=== PATIENT | female | born 1950 | race Caucasian/White ===

== ENCOUNTER → 2017-04-10 12:44 | Outpatient (CLI) | payer MEDICARE, OTHER ==
[2016-06-13 13:05] VITALS: BMI 28.1
[~2017-04-10 12:44] MED LIST: BAYER CHEWABLE81 MG PO; BENADRYL25 MG PO; BISOPROLOL-HCT1 EAC1 PO; CELEXA20 MG PO; CLARITIN 10 MG10 MG PO; IRON/FERROUS SULFATE; LEVOXYL25 MCG PO; MIRAPEX1 MG PO; NEURONTIN600 MG PO; NEXIUM20 MG PO; PLAQUENIL200 MG PO; PLAVIX75 MG PO; SINEMET 25-1001 EACH PO; STOOL SOFTENER240 MG PO; TRAZODONE HCL50 MG PO; ULTRAM50 MG PO; VITAMIN D31000 UNIT PO; VIVELLE-DO.0375 MG/2 TD; ZANAFLEX2 M1 PO
== END | disposition home or self-care (01) ==
LOC: D.CT 12:44
DX: R10.11 Right upper quadrant pain (principal); R11.0 Nausea

== ENCOUNTER 2017-04-11 19:56 | Inpatient (IN) | payer MEDICARE, OTHER ==
[~2017-04-11] VITALS: Ht 165.1 cm; Wt 68.3 kg
--- NOTE | 2017-04-11 20:00 | NUR ---
RECEIVED TO ROOM 2133 VIA WHEELCHAIR FROM HOME A DIRECT ADMIT. ACCOMPANIED BY HOSPITAL STAFF AND . DX: ABDOMEN PAIN AND FEVER. WILL CONTNUE PLAN OF CARE.
[2017-04-11 21:33] LABS: BASOPHILS 0.4 % (0-2); EOSINOPHILS 0.7 % (0-7); HEMATOCRIT 43.6 % (36.0-48.0); HEMOGLOBIN 14.7 g/dL (12-16); IMMATURE GRANULOCYTES 0.2 % (0-5); LYMPHOCYTES 27.2 % (15-50); MCH 30.8 pg (26.0-34.0); MCHC 33.7 g/dL (31.0-37.0); MCV 91.4 fL (80.0-100.0); MEAN PLATELET VOLUME 9.2 fL (7.4-10.4); MONOCYTES 8.2 % (2-11); NEUTROPHILS 63.3 % (40-80); PLATELET COUNT 157 10x3/uL (130-400); RBC 4.77 10x6/uL (4.00-5.40); RDW 14.2 % (11.5-14.5); WBC 5.5 10x3/uL (4.8-10.8)
[2017-04-11 21:47] LABS: ALBUMIN 3.8 g/dL (3.4-5.0); ALKALINE PHOSPHATASE 69 U/L (46-116); ALT (SGPT) 22 U/L (10-68); AMYLASE - SERUM 39 U/L (25-115); BILIRUBIN - TOTAL 0.46 mg/dL (0.2-1.3); CALC OSMOLALITY 286 mosm/kg (275-300); CARBON DIOXIDE 24.5 mmol/L (21.0-32.0); CHLORIDE - SERUM 106 mmol/L (98-107); CREATININE - SERUM 0.6 mg/dL (0.6-1.3); GLUCOSE 94 mg/dL (74-106); LIPASE 164 U/L (73-393); PROTEIN - SERUM 7.1 g/dL (6.4-8.2); SODIUM 143 mmol/L (136-145); UREA NITROGEN 19 mg/dL (7-18); eGFR NON AFRICAN AMERICAN > 90 mL/min (90-120)
[2017-04-11 23:00] LABS: ERYTHROCYTE SEDIMENTATION RATE 15 mm/hr (0-30)
[2017-04-12] VITALS (7 sets, daily range): BP systolic 99–164; BP diastolic 20–72; Ht 165.1 cm; Wt 68.3 kg
--- NOTE | 2017-04-12 02:45 | NUR ---
IV STARTED IN RIGHT HAND X 3 ATTEMPTS PER JULIUS HOGAN RN WITH #22G ANGIOCATH.
[2017-04-12 06:37] LABS: APPEARANCE SLT CLOUDY (CLEAR); BILIRUBIN NEGATIVE (NEGATIVE); COLOR DK YELLOW (YELLOW); GLUCOSE NEGATIVE (NEGATIVE); KETONE LARGE mg/dL (NEGATIVE); LEUKOCYTE ESTERASE NEGATIVE (NEGATIVE); NITRITE NEGATIVE (NEGATIVE); PROTEIN NEGATIVE (NEGATIVE); SPECIFIC GRAVITY 1.025 (1.005-1.020); UROBILINOGEN NORMAL (NORMAL)
--- NOTE | 2017-04-12 11:32 | NUR ---
THIS AM, PT WAS SCHEDULED FOR US. OCONNOR WAS INSERTED. UA OBTAINED. ALSO STOOL SAMPLE OBTAINED.OCONNOR THEN CLAMPED FOR BLADDER TO FILL. AFTER ONE HOUR, BLADDER FULL, OCONNOR REMOVED. PATIENT THEN TAKEN TO US.
--- NOTE | 2017-04-12 17:17 | NUR ---
Patient not NPO. Asia JASMINE, SAID SHE WOULD MAKE PATIENT NPO AFTER MIDNIGHT AND CAN DO MRCP IN THE A.M. LEFT MESSAGE WITH DR DOYLE ANSWERING SERVICE.
--- NOTE | 2017-04-12 18:18 | NUR ---
HAS BEEN RESTING IN BED. WEIGHED AGAIN PER PTS REQUEST. PATIENT WEIGHED 145.2 ON MED2 SCALE #2.
--- NOTE | 2017-04-12 19:20 | NUR ---
RECEIVED REPORT, PT VISITING WITH , DENIES ANY NEEDS, BED IS LOW, SRX2,CALL LIGHT IN REACH, WILL CONTINUE PLAN OF CARE
--- NOTE | 2017-04-12 23:40 | NUR ---
CRANE RIGGER AT BEDSIDE TO OBTAIN VITALS, CALL LIGHT IN REACH. WILL CONTINUE WITH PLAN OF CARE.
[2017-04-13] VITALS: BP 90/44
--- NOTE | 2017-04-13 02:21 | NUR ---
ASSESSMENT COMPLETE, SEE FLOWSHEET, PT AWAKE, DENIES ANY NEEDS, BEEN NPO SINCE MIDNIGHT, BED IS LOW, SRX2, CALL LIGHT IN REACH, WILL CONTINUE PLAN OF CARE
[2017-04-13 04:00] VITALS: BP 107/53
[2017-04-13 05:31] LABS: BASOPHILS 0.4 % (0-2); EOSINOPHILS 2.5 % (0-7); HEMATOCRIT 36.1 % (36.0-48.0); HEMOGLOBIN 12.1 g/dL (12-16); IMMATURE GRANULOCYTES 0.2 % (0-5); LYMPHOCYTES 40.8 % (15-50); MCH 30.3 pg (26.0-34.0); MCHC 33.5 g/dL (31.0-37.0); MCV 90.3 fL (80.0-100.0); MEAN PLATELET VOLUME 9.5 fL (7.4-10.4); MONOCYTES 6.8 % (2-11); NEUTROPHILS 49.3 % (40-80); PLATELET COUNT 147 10x3/uL (130-400); RDW 14.3 % (11.5-14.5); WBC 5.2 10x3/uL (4.8-10.8)
[2017-04-13 06:00] LABS: CALC OSMOLALITY 285 mosm/kg (275-300); CARBON DIOXIDE 26.3 mmol/L (21.0-32.0); CHLORIDE - SERUM 110 mmol/L (98-107); CREATININE - SERUM 0.7 mg/dL (0.6-1.3); GLUCOSE 112 mg/dL (74-106); POTASSIUM - SERUM 3.1 mmol/L (3.5-5.1); SODIUM 143 mmol/L (136-145); T4 THYROXIN - FREE 1.32 ng/dL (0.76-1.46); THYROID STIMULATING HORMONE 1.01 uIU/mL (0.36-3.74); UREA NITROGEN 13 mg/dL (7-18); eGFR NON AFRICAN AMERICAN 88 mL/min (90-120)
--- NOTE | 2017-04-13 07:38 | NUR ---
AM ROUNDING- RECEIVED REPORT FROM CUSTOMER RELATIONSHIP SPECIALIST NURSE INDERJIT. PT IS CURRENTLY LAYING IN BED ON RIGHT SIDE WITH EYES CLOSED RESTING. NPO CURRENTLY FOR PROCEDURE THIS AM. CONSENTS ARE SIGNED AND IN CHART. ON ROOM AIR. NO MONITOR. IV SEEN TO RIGHT HAND THAT IS CURRENTLY SALINE LOCKED. NO NEED AT CURRENT TIME. WILL CONTINUE TO MONITOR AND CONTINUE WITH PLAN OF CARE.
[2017-04-13 08:44] VITALS: BP 138/70
--- NOTE | 2017-04-13 09:01 | NUR ---
PT TO MRI VIA WHEELCHAIR.
--- NOTE | 2017-04-13 09:01 | NUR ---
0881- JONY FROM IR CALLED TO STATE TO GIVE PT PROTONIX AROUND 1000 AND TO MAKE SURE PT HAS BEEN NPO. I INFORMED MADHURI BORGES THAT PT HAS BEEN NPO SINCE MIDNIGHT ORDERED. WILL CONTINUE TO MONITOR.
--- NOTE | 2017-04-13 09:54 | NUR ---
PT BACK FROM MRI VIA WHEELCHAIR.
--- NOTE | 2017-04-13 10:32 | NUR ---
PT GIVEN PRE-OP PEPCID ORDERED BY JONY VICENTE RN IN IR. EKG DONE PER ORDER AND PLACED IN CHART.
--- NOTE | 2017-04-13 12:04 | NUR ---
PT BACK FROM PROCEDURE VIA BED.
--- NOTE | 2017-04-13 12:51 | NUR ---
PT TO XRAY VIA WHEELCHAIR.
--- NOTE | 2017-04-13 13:06 | NUR ---
PT BACK FROM AY VIA WHEELCHAIR.
--- NOTE | 2017-04-13 17:49 | NUR ---
PT IS CURRENTLY SITTING UP IN BED WITH EYES OPEN RESTING. IS AT BEDSIDE. NO NEED AT CURRENT TIME. WILL CONTINUE TO MONITOR.
[2017-04-13 18:24] VITALS: BP 170/64
[2017-04-13 19:00] VITALS: BP 154/74
--- NOTE | 2017-04-13 19:25 | NUR ---
RECEIVED REPORT, WILL ASSUME CARE OF PT, AT BEDSIDE, BED IS LOW, SRX2, CALL LIGHT IN REACH, WILL CONTINUE PLAN OF CARE
[2017-04-14 04:00] VITALS: BP 142/76
--- NOTE | 2017-04-14 07:00 | NUR ---
RECEIVED REPORT. ASSUMED CARE OF PATIENT. CALL LIGHT WITHIN REACH. PATIENT RESTING ON LEFT LATERAL SIDE. ALERT/ORIENTED. DENIES NEEDS AT THIS TIME. NO DISTRESS.
[2017-04-14 08:00] VITALS: BP 139/61
--- NOTE | 2017-04-14 10:39 | NUR ---
22 GAUGE IV PLACED TO LEFT HAND X 1 STICK. GOOD BLOOD RETURN, EASY FLUSH. TAPED, DATED AND SECURED. TOLERATED IV PLACEMENT WELL. NO DISTRESS. IV FLUIDS INFUSING TOLERATED.
[2017-04-14 12:00] VITALS: BP 148/78
--- NOTE | 2017-04-14 15:00 | NUR ---
RESTING IN BED. FAMILY AT BEDSIDE. CALL LIGHT WITHIN REACH. NO DISTRESS. DENIES NEEDS.
[2017-04-14 16:00] VITALS: BP 123/64
--- NOTE | 2017-04-14 18:18 | NUR ---
TOLERATING IV FLAGYL WELL. FAMILY AT BEDSIDE. DENIES NEEDS. CALL LIGHT WITHIN REACH. NO DISTRESS.
[2017-04-14 20:00] VITALS: BP 119/61
--- NOTE | 2017-04-14 20:06 | NUR ---
RECEIVED REPORT, WILL ASSUME CARE OF PT, PT IS ALERT & ORIENTATED, BED IS LOW, SRX2, CALL LIGHT IN REACH, PT AT BEDSIDE, WILL CONTINUE PLAN OF CARE
--- NOTE | 2017-04-15 00:17 | NUR ---
ASSESSMENT COMPLETE, SEE FLOWSHEET,PT SLEEPING, BED IS LOW, SRX2, CALL LIGHT IN REACH, WILL CONTINUE PLAN OF CARE
[2017-04-15 04:00] VITALS: BP 131/69
[2017-04-15 05:54] LABS: BASOPHILS 0.2 % (0-2); EOSINOPHILS 3.1 % (0-7); HEMATOCRIT 37.6 % (36.0-48.0); HEMOGLOBIN 12.6 g/dL (12-16); IMMATURE GRANULOCYTES 0.2 % (0-5); LYMPHOCYTES 33.2 % (15-50); MCH 29.9 pg (26.0-34.0); MCHC 33.5 g/dL (31.0-37.0); MCV 89.3 fL (80.0-100.0); MEAN PLATELET VOLUME 9.4 fL (7.4-10.4); MONOCYTES 6.6 % (2-11); NEUTROPHILS 56.7 % (40-80); PLATELET COUNT 153 10x3/uL (130-400); RBC 4.21 10x6/uL (4.00-5.40); RDW 13.8 % (11.5-14.5); WBC 6.2 10x3/uL (4.8-10.8)
[2017-04-15 06:24] LABS: ALBUMIN 3.1 g/dL (3.4-5.0); ALKALINE PHOSPHATASE 58 U/L (46-116); ALT (SGPT) 26 U/L (10-68); BILIRUBIN - TOTAL 0.58 mg/dL (0.2-1.3); CALC OSMOLALITY 281 mosm/kg (275-300); CALCIUM 8.4 mg/dL (8.5-10.1); CARBON DIOXIDE 27.2 mmol/L (21.0-32.0); CHLORIDE - SERUM 107 mmol/L (98-107); CREATININE - SERUM 0.8 mg/dL (0.6-1.3); GLUCOSE 114 mg/dL (74-106); POTASSIUM - SERUM 3.5 mmol/L (3.5-5.1); PROTEIN - SERUM 6.2 g/dL (6.4-8.2); SODIUM 142 mmol/L (136-145); UREA NITROGEN 6 mg/dL (7-18); eGFR NON AFRICAN AMERICAN 75 mL/min (90-120)
--- NOTE | 2017-04-15 07:00 | NUR ---
RECEIVED REPORT. ASSUMED CARE OF PATIENT. PATIENT SITTING TO CHAIR AT BEDSIDE. CALL LIGHT WITHIN REACH. PATIENT COMPLAINS OF NAUSEA AT THIS TIME AND THAT SHE HAS BEEN UP SINCE 4 AM WITH NAUSEA. RESP EVEN AND UNLABORED. NO ACUTE DISTRESS. INFORMED PATIENT MEDICATION FOR NAUSEA WOULD BE RETRIEVED AT TIME.
[2017-04-15 08:00] VITALS: BP 137/75
--- NOTE | 2017-04-15 09:21 | NUR ---
PAGED FOR ZOFRAN ORDERS. AWAITING FOR CALL BACK.
--- NOTE | 2017-04-15 09:40 | NUR ---
RECEIVED NEW ORDER FOR JONATHON FROM .
--- NOTE | 2017-04-15 09:50 | NUR ---
MEDICATED FOR NAUSEA AT THIS TIME. NO DISTRESS.
--- NOTE | 2017-04-15 14:24 | NUR ---
22 GAUGE IV REMOVED FROM RIGHT AC. IV NOT PATENT, WILL NOT FLUSH. PATIENT WAS CONNECTED TO NS @ [facility] BUT ACCIDENTALLY PULLED IV TUBING AND DISLODGED IV CATHETER. IV REMOVED, CATHETER TIP INTACT. NO BLEEDING FROM SITE. 2X2 GAUZE APPLIED AND SECURED WITH TAPE. NO DISTRESS. TOELRATED REMOVAL OF IV SITE WELL.
[2017-04-15 15:43] VITALS: BP 138/72
--- NOTE | 2017-04-15 18:18 | NUR ---
RESTING. ATE 100 PERCENT OF PM MEAL. STATES NO FURTHER NAUSEA AND THAT THE ZOFRAN HAS REALLY HELPED HER TODAY.
--- NOTE | 2017-04-15 19:39 | NUR ---
RECEIVED REPORT, WILL ASSUME CARE OF PT, IN ROOM TALKING WITH HER AND , PLACED ON CLEAR LIQUID DIET, WILL HAVE KUB IN AM, BED IS LOW, SRX2, CALL LIGHT IN REACH, WILL CONTINUE PLAN OF CARE
[2017-04-15 20:00] VITALS: BP 117/70
--- NOTE | 2017-04-16 04:01 | NUR ---
ASSESSMENT COMPLETE, SEE FLOWSHEET, PT SLEEPING, BED IS LOW, SRX2, CALL LIGHT IN REACH, WILL CONTINUE PLAN OF CARE
[2017-04-16 08:40] VITALS: BP 139/66
--- NOTE | 2017-04-16 10:21 | NUR ---
AM MEDS GIVEN, ALSO GAVE ZOFRAN FOR C/O NAUSEA. PT DENIES ANY NEEDS AT THIS TIME. CALL LIGHT IN REACH, NAD NOTED, WILL CONTINUE TO MONITOR.
--- NOTE | 2017-04-16 11:30 | NUR ---
PT RESTING QUIETLY, RR EVEN AND UNLABORED, ALERT AND ORIENTED X4. INTRODUCED SELF RN FOR THE REST OF THE DAY. DENIES NEEDS AT THIS TIME. BED IN LOWEST POSTION, CALL LIGHT IN REACH, WILL CTM.
--- NOTE | 2017-04-16 11:31 | NUR ---
BEDSIDE REPORT GIVEN TO RN CRISTINE EMMANUEL WHO WILL BE TAKING OVER CARE FOR THIS PT. PT RESTING AND DENIES ANY NEEDS AT THIS TIME.
[2017-04-16 12:39] VITALS: BP 133/73
[2017-04-16 16:51] VITALS: BP 135/78
[2017-04-16 19:00] VITALS: BP 145/68
--- NOTE | 2017-04-16 19:44 | NUR ---
PT IN BED RESTING. AT BEDSIDE. C/O NAUSEA, WILL CHECK TIME FOR ZOFRAN. PT IV SWOLLEN LEFT HAND, WILL CHECK FOR PLACEMENT OF NEW IV. PT DENIES ANY OTHER NEEDS. NO S/S OF DISTRESS WILL CONTINUE TO MONITOR
[2017-04-17] VITALS: BP 108/55
[2017-04-17 04:00] VITALS: BP 135/65
--- NOTE | 2017-04-17 06:44 | NUR ---
PT IN BED RESTING. C/O NAUSEA. ZOFRAN GIVEN LEFT HAND IV. PT DENIES ANY OTHER NEEDS. NO S/S OF DISTRESS. WILL CONTINUE TO MONITOR
--- NOTE | 2017-04-17 07:15 | NUR ---
RECEIVED REPORT. ASSUMED CARE OF PATIENT. CALL LIGHT WITHIN REACH. ALERT/ORIENTED SITTING IN BED. XRAY AT BEDSIDE FOR REPEAT KUB AT THIS TIME. IV FLUIDS AT K[facility] TO LEFT HAND. RESP EVEN AND UNLAOBRED. NO DISTRESS.
--- NOTE | 2017-04-17 08:08 | NUR ---
RECEIVED CALL FROM XRAY. PATIENT CONTINUES TO HAVE TOO MUCH BARIUM REMAINING THROUGHOUT COLON TO DO CTA TODAY. DR. MELISSA HERE AND WILL ASK FOR ORDERS.
[2017-04-17 08:23] VITALS: BP 154/71
--- NOTE | 2017-04-17 09:27 | NUR ---
Patient Name: SADIQ BROWN Admission Status: Elective Accout number: [id number] Admission Date: 04-15-2017 : 1950 Admission Diagnosis:UNSPECIFIED ABDOMINAL PAIN Attending: MARIA G Current LOS: 2 Anticipated DC Date: Planned Disposition: Home Primary Insurance: MEDICARE A & B Discharge Planning Comments: * Is the patient Alert and Oriented? Yes 0 * How many steps to enter\exit or inside your home? 0-O / 1-I 0 * PCP DR. MELISSA 0 * Pharmacy [facility] ON [address] * Preadmission Environment Home with Family 0 * ADLs Independent 0 * Equipment Cane 0 * Other Equipment [facility] - MEDICAL EQUIPMENT PROVIDER PREFERENCE 0 * List name and contact numbers for known caregivers / representatives who currently or will assist patient after discharge: ADAIR BROWN, SPOUSE, 0 * Community resources currently utilized None 0 * Please name any agencies selected above. NONE 0 * Additional services required to return to the preadmission environment? No 0 * Can the patient safely return to the preadmission environment? Yes 0 * Has this patient been hospitalized within the prior 30 days at any hospital? No 0 CM MET WITH PT IN ROOM TO DISCUSS DISCHARGE PLANNING AND NEEDS. PT REPORTS LIVING AT HOME INDEPENDENTLY WITH SPOUSE. PT HAS A CANE WITH [employer] PREFERRED MEDICAL EQUIPMENT PROVIDER. PT HAS NO OUTSIDE SERVICES ASSISTING IN THE HOME. CM DISCUSSED AVAILABILITY OF HOME HEALTH, REHAB SERVICES AND MEDICAL EQUIPMENT. PT DENIES DISCHARGE NEEDS, REPORTS HER SPOUSE WILL PICK HER UP FOR DISCHARGE HOME. PT PLANS TO DISCHARGE HOME WITH SPOUSE, NO ANTICIPATED DISCHARGE NEEDS AT THIS TIME. CM TO FOLLOW AND ASSIST NEEDED. Fine Unhairer: [place]
--- NOTE | 2017-04-17 09:35 | NUR ---
BOWEL MOVEMENT AT THIS TIME. PRUNE JUICE GIVEN AT 0815 THIS AM. LACTULOSE AND MIRALEX ADMINISTERED AT THIS TIME. ENCOURAGED PATIENT TO DRINK ORAL FLUIDS AND AMBULATE.
--- NOTE | 2017-04-17 10:32 | NUR ---
PATIENT HAS HAD A SECOND SEMI FORMED BOWEL MOVEMENT AT THIS TIME FOLLOWED BY LIQUID STOOL.
--- NOTE | 2017-04-17 11:35 | NUR ---
20 GAUGE IV PLACED TO RIGHT FOREARM X STICK BY KENROY AMEZQUITA RN. GOOD BLOOD RETURN, EASY FLUSH. TAPED, DATED AND SECURED. TOLERATED IV PLACEMENT WELL. 20 GAUGE PLACED FOR RADIOLOGIC PURPOSES FOR TESTING SCHEDULED.
[2017-04-17 12:40] VITALS: BP 130/61
--- NOTE | 2017-04-17 12:40 | NUR ---
PATIENT HAS HAD SIX BOWEL MOVEMENTS, REPEAT KUB STILL SHOWS THAT PATIENT HAS HIGH AMOUNTS OF BARIUM REMAINING IN COLON AND IT IS STILL NOT SAFE TO PROCEEDE WITH CTA. WILL PAGE AND INFORM HIM OF THE KUB RESULTS.
--- NOTE | 2017-04-17 12:48 | NUR ---
SPOKE TO . NOTIFIED MD THAT EVEN AFTER 2 FORMED STOOLS AND 4 LIQUID STOOLS THAT PATIENT REPEAT KUB STILL SHOWS TOO MUCH BARIUM IN THE COLON TO DO THE CTA THIS AFTERNOON. ASKED MD IF HE WOULD LIKE ME TO DO AN ENEMA AND HE STATED NO, CANCEL THE ENEMA AND WE WILL DO ANOTHER KUB IN AM AND IF KUB IS GOOD IN AM THEN WE CAN PROCEED WITH THE CTA.THANKED FOR ORDERS.
[2017-04-17 16:15] VITALS: BP 165/69
--- NOTE | 2017-04-17 17:37 | NUR ---
STOOL SPECIMEN SUBMITTED TO LAB FOR OVA AND PARASITES.
[2017-04-17 19:00] VITALS: BP 168/84
--- NOTE | 2017-04-17 19:23 | NUR ---
PT RESTING IN BED. AT BEDSIDE. D5NS INFUSING TO IV RIGHT FOREARM. PT ASKS FOR PRUNE JUICE AND ZOFRAN WITH NIGHTTIME MEDS. I WILL PROVIDE THEM WITH 2100 MEDS. PT DENIES ANY OTHER NEEDS, NO S/S OF DISTRESS. WILL CONTINUE TO MONITOR
[2017-04-18] VITALS: BP 140/68
--- NOTE | 2017-04-18 01:13 | NUR ---
PT RESTING IN BED. HAS HAD 3 BM'S MODERATE SOFT AMOUNT. PT HAD ONE ACCIDENT OF BM. SHE HAS CLEANED UP AND NOW IS GOING TO SLEEP. PT DENIES ANY NEEDS. NO S/S OF DISTRESS. WILL CONTINUE TO MONITOR
[2017-04-18 04:00] VITALS: BP 158/77
--- NOTE | 2017-04-18 05:00 | NUR ---
PT SLEEPING. RESPIRATIONS EVEN AND UNLABORED. NO S/S OF DISTRESS. WILL CONTINUE TO MONITOR
[2017-04-18 05:38] LABS: BASOPHILS 0.4 % (0-2); EOSINOPHILS 4.1 % (0-7); HEMATOCRIT 35.5 % (36.0-48.0); IMMATURE GRANULOCYTES 0.2 % (0-5); LYMPHOCYTES 37.5 % (15-50); MCH 30.6 pg (26.0-34.0); MCHC 33.8 g/dL (31.0-37.0); MCV 90.6 fL (80.0-100.0); MEAN PLATELET VOLUME 9.5 fL (7.4-10.4); MONOCYTES 7.5 % (2-11); NEUTROPHILS 50.3 % (40-80); PLATELET COUNT 167 10x3/uL (130-400); RBC 3.92 10x6/uL (4.00-5.40); WBC 5.1 10x3/uL (4.8-10.8)
[2017-04-18 05:53] LABS: APTT 32.2 SECONDS (22.8-39.4); INR 1.17 (0.85-1.17); PROTIME 14.7 SECONDS (11.6-15.0)
[2017-04-18 05:55] LABS: CALC OSMOLALITY 283 mosm/kg (275-300); CALCIUM 8.1 mg/dL (8.5-10.1); CARBON DIOXIDE 25.9 mmol/L (21.0-32.0); CHLORIDE - SERUM 109 mmol/L (98-107); CREATININE - SERUM 0.7 mg/dL (0.6-1.3); GLUCOSE 102 mg/dL (74-106); MAGNESIUM - SERUM 1.7 mg/dL (1.8-2.4); POTASSIUM - SERUM 3.3 mmol/L (3.5-5.1); SODIUM 144 mmol/L (136-145); UREA NITROGEN 4 mg/dL (7-18); eGFR NON AFRICAN AMERICAN 88 mL/min (90-120)
--- NOTE | 2017-04-18 07:23 | NUR ---
0700- RECEIVED CALL FROM DR. MELISSA STATING TO GIVE PT ENEMA THIS AM FOR PROCEDURE TODAY. WILL PUT ORDERS IN AND CONTINUE TO MONITOR.
--- NOTE | 2017-04-18 07:58 | NUR ---
AM ROUNDING- RECEIVED REPORT FROM FLOOR WORKER WELL SERVICE NURSE NII. PT IS CURRENTLY LAYING IN BED ON LEFT SIDE WITH EYES OPEN RESTING. ON ROOM AIR. NO MONITOR. IV SEEN TO RIGHT FOREARM WITH D5 NS RUNNING AT 75CC. NPO CURRENTLY FOR CTA OF ABDOMEN TODAY. PT GIVEN ENEMA ORDERED AND STATES SHE CAN GIVE IT HERSELF. NO NEED AT CURRENT TIME. WILL CONTINUE TO MONITOR AND CONTINUE WITH PLAN OF CARE.
[2017-04-18 08:00] VITALS: BP 107/62
[2017-04-18 12:00] VITALS: BP 140/69
--- NOTE | 2017-04-18 13:25 | NUR ---
PT IS REQUESTING ANOTHER ENEMA BECAUSE SHE STATES SHE FEELS SHE STILL HAS CONSTRAST DYE IN HER SYSTEM. WILL CALL DR. MELISSA AND SEE ABOUT GETTING PT ANOTHER ENEMA REQUESTED.
--- NOTE | 2017-04-18 13:27 | NUR ---
CALLED DR. MARINO' OFFICE. RECEIVED VOICE MESSAGE FROM DR. MARINO' NURSE LESA. LEFT VOICEMAIL WITH CALLBACK NUMBER. WILL AWAIT CALLBACK AND CONTINUE TO MONITOR.
--- NOTE | 2017-04-18 13:56 | NUR ---
RECEIVED CALLBACK FROM DR. MARINO' OFFICE. TELEPHONE ORDERS RECEIVED FOR ENEMA. WILL GIVE PT ENEMA ORDERED AND CONTINUE TO MONITOR.
--- NOTE | 2017-04-18 14:39 | NUR ---
PRE-OPD PT HAS DIRECTED FROM SURGERY. CALLED SURGERY TO INFORM THEM THAT I DID NOT GIVE PT REGLAN DUE TO DIRECTIONS STATING TO NOT GIVE TO PT WITH HX OF PARKINSONS (PT HAS PARKINSONS), CALLED OMID IN SURGERY TO INFORM HIM OF THIS. CONSENTS SIGNED AND PLACED IN CHART. WILL AWAIT SURGERY TO COME GET PT AND CONTINUE TO MONITOR.
--- NOTE | 2017-04-18 15:26 | NUR ---
1303- PT TO SURGERY VIA BED.
--- NOTE | 2017-04-18 17:07 | NUR ---
PT IS STILL OUT OF ROOM FOR PROCEDURE. WILL AWAIT REPORT AND PT ARRIVAL.
--- NOTE | 2017-04-18 17:11 | NUR ---
RECEIVED REPORT FROM SADIQ IN SURGERY. AWAITING PT ARRIVAL.
[2017-04-18 17:26] VITALS: BP 114/70
--- NOTE | 2017-04-18 17:28 | NUR ---
RECEIVED PT VIA BED FROM SADIQ IN SURGERY. POST-OP VITAL SIGNS DONE PER PROTOCOL. PT IS ON 02 AT 4L VIA IA CURRENTLY WITH 02 SAT AT 96%. PT IS LETHARGIC. STERI-STRIPS SEEN TO ABDOMEN AREA WHERE PT HAD PROCEDURE. WILL CONTINUE FREQUENT VITALS AND CONTINUE TO MONITOR.
--- NOTE | 2017-04-18 18:21 | NUR ---
PAGED DR. ALVARENGA TO SEE ABOUT GETTING SOMETHING FOR PT C/O PAIN. WILL AWAIT CALLBACK AND CONTINUE TO MONITOR.
--- NOTE | 2017-04-18 18:29 | NUR ---
RECEIVED CALLBACK FROM DR. ALVARENGA WITH NEW ORDERS RECEIVED.
[2017-04-18 19:00] VITALS: BP 134/65
--- NOTE | 2017-04-18 19:30 | NUR ---
PT RESTING IN BED RESPIRATIONS EVEN AND UNLABORED. NO S/S OF DISTRESS WILL CONTINUE TO MONITOR
--- NOTE | 2017-04-18 20:49 | NUR ---
PT UP TO BATHROOM WITH STANDBYE ASSIST.PT AWAKE AND A&O. AT BEDSIDE PT BLEEDING FROM INCISON ABOVE THE UMBILICUS. CLEANED AND STABLIZED WITH NEW STERI STRIPS. NO S/S OF DISTRESS. WILL CONTINUE TO MONITOR
--- NOTE | 2017-04-18 21:36 | NUR ---
PT IS ASKING FOR ICE CHIPS OR SOMETHING TO DRINK. NO DIET WAS IN SO WAS PAGED. SPOKE TO DR. DANG AND HE SAID ASK SURG.R/T LAP SURG DONE TODAY. LYLE PAGED AND HE SAID TO RESUME HER NORMAL DIET. HER CLEAR LIQUID DIET WAS PUT BACK IN.
[2017-04-19] VITALS: BP 134/60
--- NOTE | 2017-04-19 03:09 | NUR ---
PT SLEEPING ON BACK. RESPIRATIONS EVEN AND UNLABORED. D5NS INFUSING TO RIGHT ARM IV. SCD'S STILL ON. NO S/S OF DISTRESS. WILL CONTINUE TO MONITOR
[2017-04-19 04:34] VITALS: BP 120/57
[2017-04-19 06:12] LABS: ANION GAP 12.6 mmol/L (8-16); CALCIUM 8.4 mg/dL (8.5-10.1); CARBON DIOXIDE 25.4 mmol/L (21.0-32.0)
[2017-04-19 06:18] LABS: CREATININE - SERUM 0.9 mg/dL (0.6-1.3)
--- NOTE | 2017-04-19 07:00 | NUR ---
PT RESTING IN BED. INFORMED PT MY SHIFT IS OVER. PT DENIES ANY NEEDS AT THIS TIME
--- NOTE | 2017-04-19 07:40 | NUR ---
AM ROUNDING DONE WITH PATIENT RATING PAIN 3/10 TO LEFT SIDE. MALE MEMBER AT BEDSIDE. IF SEEN INFUSING TO RIGHT FA OF D5NS AT 75 CC/HR. ON ROOM AIR AT PRESENT TIME. HAS A SOFT NECK PILLOW IN USE. BILATERAL SCD'S ON. WILL MONITOR.
[2017-04-19 08:19] VITALS: BP 136/70
--- NOTE | 2017-04-19 10:11 | NUR ---
CALL PLACED TO DR MELISSA OFFICE R/T NO SINEMENT 25-100 MG 1 1/2 TABS TID WHILE IN THE HOSPITAL. AWAITING CALL BACK.
--- NOTE | 2017-04-19 10:29 | NUR ---
NEW ORDERS RECEIVED PER DR MELISSA.
[2017-04-19 12:06] VITALS: BP 123/60
--- NOTE | 2017-04-19 14:28 | NUR ---
I CALLED AND ASKED RIKI (PHARMACIST) IF SINEMET GIVEN AT 1042 AND THEN ANOTHER DOSE AT 1500 WOULD BE TO CLOSE TO BE GIVEN. HE SAID THAT HE THOUGHT IT WOULD BE OKAY.
[2017-04-19 15:47] VITALS: BP 130/64
--- NOTE | 2017-04-19 16:18 | NUR ---
FLAGYL STARTED TO INFUSE TO RIGHT FA WITHOUT PROBLEMS. PATIENT DENIES NEEDS AT PRESENT TIME. STILL WITH NO BM AT PRESENT TIME, WILL PASS THIS TO NEXT SHIFT.
--- NOTE | 2017-04-19 19:15 | NUR ---
Received patient resting in bed with eyes open and at bedside, assessment completed per flowsheet. Patient AO x4, calm and cooperative. Eyes PERRLA @ 4mm with brisk response, sclera is white. S1/S2 noted rhythmic and regular. Breathing is even and unlabored on room air, lung clear throughout. Abdomen is round and soft, tender to palpation with bowel sounds hypoactive x4. Lap sites x3 noted with steri strips adhered, no bleeding or drainage noted. Patient ambulates to commode without assistance, clear yellow urine/small soft formed stool noted. Patient states slight discomfort R lower abdomen, states "from Adhesion/Lysis surgery" and does not need anything. 22g R forearm PIV noted, patent with dressing intact. No further needs at this time, all VSS and will continue to monitor.
[2017-04-19 21:00] VITALS: BP 170/68
--- NOTE | 2017-04-19 21:00 | NUR ---
HS meds given without difficulty, patient at bedside. States discomfort R lower abdomen "better than it was", no further needs at this time. All VSS and will continue to monitor.
--- NOTE | 2017-04-19 22:45 | NUR ---
Patient c/o nausea, PRN medication given. No further needs at this time and will continue to monitor.
--- NOTE | 2017-04-19 23:00 | NUR ---
Reassessment completed per flowsheet, patient resting in bed with eyes open watching TV. S1/S2 noted rythmic and regular, breathing is even and unlabored on room air. Abdomen is round and soft with Lap site x3 noted. Steri strips adhered with no bleeding or drainage noted. All pulses palpable with cap refill < 3 sec. Patient states nausea "better", no further needs at this time. All VSS and will continue to monitor.
[2017-04-20 00:32] VITALS: BP 130/65
--- NOTE | 2017-04-20 01:00 | NUR ---
Patient resting in bed with eyes closed, denies pain or other needs at this time. All VSS and will continue to monitor.
--- NOTE | 2017-04-20 03:00 | NUR ---
Reassessment completed per flowsheet, patient resting in bed with eyes closed. S1/S2 noted rythmic and regular. Breathing is even and unlabored on room air, all pulses palpable with cap refill < 3 sec. Abdomen is round and soft, tender to palpation with bowel sounds hypoactive x4. Lap site x3 noted with steri strips adhered, no bleeding or drainage noted. Patient denies pain or other needs at this time, all VSS and will continue to monitor.
[2017-04-20 04:05] VITALS: BP 113/50
--- NOTE | 2017-04-20 05:00 | NUR ---
AM meds given without difficulty, No further needs at this time. All VSS and will continue to monitor.
--- NOTE | 2017-04-20 07:36 | NUR ---
AM ROUNDING- RECEIVED REPORT FROM OIL AGENT NURSE LISA. PT IS CURRENTLY SITTING UP IN BED WITH EYES OPEN RESTING. C/O SORENESS FROM ABDOMINAL AREA BUT NO PAIN. ON ROOM AIR. NO MONITOR. IV SEEN TO RIGHT FOREARM WITH D5NS RUNNING AT 75CC. PT STATES DR. MELISSA WAS JUST IN ROOM AND SHE MAY GET TO D/C HOME TODAY. NO NEED AT CURRENT TIME. WILL CONTINUE TO MONITOR AND CONTINUE WITH PLAN OF CARE.
[2017-04-20 08:18] VITALS: BP 161/78
--- NOTE | 2017-04-20 09:57 | NUR ---
Nutrition education for Gluten-free diet: Pt just diagnosed with celiac sprue. Reviewed allowed and not allowed foods. Discussed label reading and how to look for hidden gluten containing ingredients. Reviewed sample menus. Provided pt with printed diet handouts. Pt with very good understanding of information provided. Thank you for the consult.
--- NOTE | 2017-04-20 10:36 | NUR ---
PT IS C/O DISCOMFORT FROM IV SITE TO RIGHT FOREARM. IV SITE APPEARS RED, SLIGHTLY SWOLLEN, AND TENDER TO TOUCH PER PT. RESITED IV TO LEFT FOREARM X1 STICK WITH 20G IV CATHETER. TOLERATED WELL. REMOVED IV TO RIGHT FOREARM WITH CATH TIP INTACT. COVERED SITE WITH 2X2 GUAZE PADS AND SECURED WITH TAPE.
[2017-04-20 11:44] VITALS: BP 123/57
[2017-04-20 15:28] VITALS: BP 154/82
--- NOTE | 2017-04-20 18:37 | NUR ---
PT IS SITTING UP IN BED TALKING ON CELLPHONE. DENIES ANY NEED AT CURRENT TIME. CALL LIGHT IS IN REACH. WILL CONTINUE TO MONITOR.
[2017-04-20 19:00] VITALS: BP 177/87
--- NOTE | 2017-04-20 21:15 | NUR ---
AWAKE/ORIENTED X4. ADMIN SCHED MEDS AND ZOFRAN 4MG IV FOR C/O NAUSEA. L FA IV INTACT WITH D5NS INFUSING AT 75ML/HR. DENIES PAIN. HAS CALL LIGHT IN REACH.
[2017-04-21] VITALS: BP 112/63
[2017-04-21 04:00] VITALS: BP 154/83
--- NOTE | 2017-04-21 04:14 | NUR ---
AWAKE LYING ON RIGHT SIDE. DENIES ANY NEEDS OR DISCOMFORTS.
--- NOTE | 2017-04-21 07:30 | NUR ---
AM ROUNDS - PT RESTING QUIETLY. D5NS RESTARTED AT 75MLS/HR AFTER PT SHOWERED. RR EVEN AND UNLABORED. BED IN LOWEST POSTION, CALL CHING IN REACH, DENIES OTHER NEEDS AT THIS TIME. WILL CTM.
[2017-04-21 08:31] VITALS: BP 146/75
[2017-04-21] MEDS ORDERED: HYDROCODON-ACE1 EAC7 PO (10:20)
[2017-04-21] MEDS ORDERED: FLORAJEN3 CAPS460 MG PO (10:21)
[2017-04-21] MEDS ORDERED: MILK OF MAGNESI30 ML PO (10:22)
[2017-04-21] MEDS ORDERED: MINERAL OIL25 ML PO (10:22)
[2017-04-21] MEDS ORDERED: ZOFRAN4 MG PO (10:24)
[2017-04-21 12:33] VITALS: BP 115/70
--- NOTE | 2017-04-21 16:24 | NUR ---
DISCHARGE INSTRUCTIONS PROVIDED, PT VERBALIZED UNDERSTANDING AND COPY PROVIDED. IV REMOVED WITH CATHETER TIP INTACT. PT DENIES OTHER NEEDS AT THIS TIME, WILL CALL WHEN READY TO BE TRANSPORTED DOWNSTAIRS VIA WHEELCHAIR.
== END 2017-04-21 17:00 | disposition home or self-care (01) | DRG 336 ==
LOC: OBSVTIME 19:56 → D.M2 19:56
PROVIDERS: Internal Medicine Gastroenterology; Surgery; ADMIT Family Medicine
PROC: 0DB68ZX Excision of Stomach, Via Natural or Artificial Opening Endoscopic, Diagnostic (ICD-10-PCS; 2017-04-13)
PROC: 0DB58ZX Excision of Esophagus, Via Natural or Artificial Opening Endoscopic, Diagnostic (ICD-10-PCS; 2017-04-13)
PROC: 0DB98ZX Excision of Duodenum, Via Natural or Artificial Opening Endoscopic, Diagnostic (ICD-10-PCS; principal; 2017-04-13 10:30)
PROC: 0DNH4ZZ Release Cecum, Percutaneous Endoscopic Approach (ICD-10-PCS; 2017-04-18 12:45)
DX: K90.0 Celiac disease (principal); K56.0 Paralytic ileus; R10.11 Right upper quadrant pain; K66.0 Peritoneal adhesions (postprocedural) (postinfection); R10.32 Left lower quadrant pain; G20 Parkinson's disease; G62.9 Polyneuropathy, unspecified; I10 Essential (primary) hypertension; F32.9 Major depressive disorder, single episode, unspecified; I25.10 Atherosclerotic heart disease of native coronary artery without angina pectoris; Z95.5 Presence of coronary angioplasty implant and graft; M81.0 Age-related osteoporosis without current pathological fracture; M06.9 Rheumatoid arthritis, unspecified; E03.9 Hypothyroidism, unspecified; Z78.0 Asymptomatic menopausal state; E87.6 Hypokalemia

== ENCOUNTER → 2017-05-03 07:34 | Outpatient (CLI) | payer MEDICARE, OTHER ==
[2017-04-12 13:53] VITALS: BMI 24.1
[~2017-05-03 07:34] MED LIST changes: +FLORAJEN3 CAPS460 MG PO; +HYDROCODON-ACE1 EAC7 PO; +MILK OF MAGNESI30 ML PO; +MINERAL OIL25 ML PO; +ZOFRAN4 MG PO
== END | disposition home or self-care (01) ==
LOC: D.CT 07:34
DX: R10.9 Unspecified abdominal pain (principal); I99.9 Unspecified disorder of circulatory system

== ENCOUNTER → 2017-06-27 16:04 | Outpatient (CLI) | payer MEDICARE, OTHER ==
[2017-04-12 13:53] VITALS: BMI 24.1
== END | disposition home or self-care (01) ==
LOC: D.LAB 05-04 15:00
DX: R10.9 Unspecified abdominal pain (principal); R19.7 Diarrhea, unspecified; R11.2 Nausea with vomiting, unspecified

== ENCOUNTER → 2017-07-31 16:10 | Outpatient (CLI) | payer MEDICARE, OTHER ==
[2017-04-12 13:53] VITALS: BMI 24.1
== END | disposition home or self-care (01) ==
LOC: D.RAD 16:10
DX: K59.00 Constipation, unspecified (principal)

== ENCOUNTER 2018-02-18 07:36 | Outpatient (CLI) | payer MEDICARE, OTHER ==
[~2018-02-18] VITALS: Ht 165.1 cm; Wt 75.0 kg
--- NOTE | ~2018-02-18 | OP ---
PATIENT NAME: SADIQ BROWN MEDICAL RECORD: [id number] :48 LOCATION:D.CAT ADMISSION DATE: SURGEON: CHANO NGUYEN MD DATE OF OPERATION: 02/18/2018 PROCEDURES: 1. PTCA stent RCA. 2. Intravascular ultrasound. 3. Left heart catheterization. 4. Selective coronary angiography. 5. Left ventriculogram. INDICATION: Angina and coronary artery disease. PROCEDURE IN DETAIL: After informed consent was obtained and after a detailed explanation of the risks, benefits as well as alternative therapies, the patient elected to proceed with angiogram and angioplasty. The right radial area is prepped and draped in normal sterile fashion. Right radial artery was cannulated via modified Seldinger technique with placement of 6-Estonian sheath. All catheters exchanged through this sheath. FINDINGS: Left ventriculogram performed in standard 30-degree ANTONIO view reveals good cardiac wall motion throughout all segments. Overall ejection fraction estimated 60%. SELECTIVE CORONARY ANGIOGRAPHY: 1. Left main is with no significant angiographic disease. 2. Left anterior descending has previously placed stents, these are widely with no significant restenosis. No disease elsewise at the LAD or its branches. 3. The left circumflex has previously placed stents, these are widely patent with no significant restenosis. No disease elsewise at the left circumflex or its branches. 4. Right coronary has 70% stenosis in the distal vessel confirmed by intravascular ultrasound. There is a previously placed stent. This is widely patent with no significant restenosis throughout. PTCA STENT OF THE RCA: The stent used was a 2.5 x 12 mm [place]. Result was 0% residual stenosis. OVERALL IMPRESSION: Successful percutaneous transluminal angioplasty stent of the right coronary artery going from 70% initial stenosis confirmed by intravascular ultrasound to 0% residual stenosis. TRANSINT:[id number] Voice Confirmation ID: [id number] DOCUMENT ID: [id number] CHANO NGUYEN MD at 1630 CC: [id number] DICTATION DATE: 02/18/18 0956 SITE HEAD: 02/18/18 1140 DEP CLI 02/18/18 [facility] [address] [place] [address]
--- NOTE | ~2018-02-18 | HEMODYNAMI ---
PATIENT:SADIQ BROWN MEDICAL RECORD: [id number] : 46 LOCATION:D.CAT ADMISSION DATE: 02/18/18 Generatedon:02/18/20189:56 Patient name: SADIQ BROWN Patient #: [id number] SSN: : 1950 Date of study: 02/18/2018 Page: Of Hemodynamic Procedure Report Patient Data Patient Demographics Procedure consent was obtained First Name: SADIQ Gender: Female Last Name: NEHEMIAH : 1950 Middle Initial: G Age: 67 year(s) Patient #: [id number] Race: Unknown Additional ID: [id number] Contact details [address]: [address] [place] [address] [place] State: [place] City: [place] Zip code: [address] Past Medical History Allergies Allergen Reaction Date Comments Reported Other allergy 01/19/2015 Flexin Other allergy 01/19/2015 Relafin Penicillins 01/19/2015 Other allergy 01/19/2015 Ibuprofen Other allergy 02/18/2018 Cipro, PCN, Ibuprofen Admission Admission Data Admission Date: 02/18/2018 Admission Time: 7:36 Admit Source: Other Lab Results Lab Result Date: 02/18/2018 Lab Result Time: 8:00 Biochemistry Name Units Result Min Max BUN mg/dl 16 --(---*)-- 7 18 Creatinine mg/dl 0.8 --(-*--)-- 0.6 1.3 CBC Name Units Result Min Max Hematocrit % 37.3 *-(----)-- 42 54 Hemoglobin g/dl 12.8 -*(----)-- 13.5 17.5 Procedure Procedure Types Cath Procedure Diagnostic Procedure [facility] w/Coronaries FFR/IVUS Intra-Coronary IVUS Initial Sedation Charges Moderate Sedation up to 15 minutes PCI Procedure Coronary Stent Coronary Stent Initial Procedure Description Procedure Date Procedure Date: 02/18/2018 Procedure Start Time: 9:38 Procedure End Time: 9:55 Procedure Staff Name Function Chava Escobar MD Performing Physician Dave Monzon RT Monitor Buffie Jennings RN Nurse Tanya Villanueva RT Scrub Procedure Data Cath Procedure Fluoroscopy Diagnostic fluoroscopy Total fluoroscopy Time: 3.1 time: 3.1 min min Diagnostic fluoroscopy Total fluoroscopy dose: 590 dose: 590 mGy mGy Contrast Material Contrast Material Type Amount (ml) Isovue 370 80 Entry Location Entry Primary Successful Side Size Upsize Upsize Entry Closure Ivey ccessful Closure Location (Fr) 1 (Fr) 2 (Fr) Remarks Device Remarks Radial Right 6 Fr Mechanical artery Short Compression Estimated blood loss: 10 ml Diagnostic catheters Device Type Used For End Catheter Placement DIAGNOSTIC [place] 110cm 5 Procedure Fr catheter ([id number]) Procedure Complications No complications Procedure Medications Medication Administration Route Dosage Oxygen NC 2 l/min Lidocaine 2% added to field 20 Heparin Flush Bag added to field 2 bags (1000units/500ml NS) 0.9% NaCl I.V. 100 ml/hr Radial Cocktail added to field 1 syringe (Verapomil 2mg/Nitro 400mcg/Heparin 1500units) Versed I.V. 1 mg Fentanyl I.V. 50 mcg Versed I.V. 0.5 mg Fentanyl I.V. 25 mcg Versed I.V. 0.5 mg Fentanyl I.V. 25 mcg Heparin Bolus I.V. 4000 units Hemodynamics Rest HGB: 12.8 (g/dl) Heart Rate: 65 (bpm) Pressure Samples Time Site Value (mmHg) Purpose Heart Use Rate(bpm) 9:41 LV 85/17,15 Snapshot 69 Snapshots Pre Cath Intra NCS Post Cath Vital Signs Time Heart Resp SPO2 etCO2 NIBP (mmHg) Rhythm Pain Sedation Rate (ipm) (%) (mmHg) Status Level (bpm) 9:23:45 72 14 97 9.7 156/89(134) NSR 0 (11) 10(A) , No pain 9:28:03 73 16 94 35.4 148/79(130) NSR 0 (11) 10(A) , No pain 9:32:21 66 17 95 35.3 132/71(116) NSR 0 (11) 10(A) , No pain 9:36:33 64 14 94 35.3 120/69(98) NSR 0 (11) 10(A) , No pain 9:40:45 66 15 95 37.6 123/58(93) NSR 0 (11) 9(A) , No pain 9:44:55 68 16 94 24.1 110/69(87) NSR 0 (11) 9(A) , No pain 9:48:58 67 15 95 19.5 119/68(86) NSR 0 (11) 9(A) , No pain 9:52:58 76 14 96 37.6 124/74(99) NSR 0 (11) 10(A) , No pain Medications Time Medication Route Dose Verified Delivered Reason Notes Effectiveness by by 9:22:19 Oxygen NC 2 l/min Chava Buffie used for Luz Jennings RN procedure 9:22:26 Lidocaine 2% added 20ml Chava Chava for local to vial Luz Escobar MD anesthetic field 9:22:33 Heparin Flush added 2 bags Chava Larsen used for Bag to Luz Escobar MD procedure (1000units/500ml field NS) 9:22:43 0.9% NaCl I.V. 100 Chava Buffie Per physician ml/hr Luz Jennings RN 9:34:20 Versed I.V. 1 mg Chava Buffie for sedation Luz Jennings RN 9:34:25 Fentanyl I.V. 50 mcg Chava Buffie for sedation Luz Jennings RN 9:37:11 Versed I.V. 0.5 mg Chava Buffie for sedation Luz Jennings RN 9:37:17 Fentanyl I.V. 25 mcg Chava Buffie for sedation Luz Jennings RN 9:41:09 Radial Cocktail added 1 Chava Chava for (Verapomil to syringe Luz Escobar MD vasodilation 2mg/Nitro field 400mcg/Heparin 1500units) 9:41:15 Versed I.V. 0.5 mg Chava Buffie for sedation Luz Jennings RN 9:41:19 Fentanyl I.V. 25 mcg Chava Buffie for sedation Luz Jennings RN 9:47:33 Heparin Bolus I.V. 4000 Chava Buffie for verif ied units Luz Jennings RN anticoagulation with dr escobar Procedure Log Time Note 9:00:07 Admit Source: Other 9:00:08 Diagnostic Cath status Elective 9:00:09 Tanya Villanueva RT(R) sent for patient. Start room use. 9:00:10 Time tracking: Regular hours (M-F 7:00 - 5:00) 9:00:13 Plan of Care:Hemodynamics will remain stable., Cardiac rhythm will remain stable., Comfort level will be maintained., Respiratory function will remain adequate., Patient/ family verbilizes understanding of procedure., Procedure tolerated without complication., Recovers from procedure without complications.. 9:01:01 H&P Date Dictated: 01/22/2018 Within 30 days and on chart., H&P Addendum completed by physician on day of procedure. (MUST COMPLETE FOR ALL OUTPATIENTS). 9:02:50 Patient allergic to Other allergyCipro, PCN, Ibuprofen 9:15:44 Patient received from Pre/Post Procedure Room to CCL 2 Alert and oriented. Tansferred to table in Supine position. 9:15:45 Warm blankets applied, and zulema hugger turned on for patient comfort. 9:15:45 Correct patient and procedure confirmed by team. 9:15:46 Signed procedure consent form obtained from patient. 9:15:47 ECG and BP/O2 sat monitors applied to patient. 9:15:48 Pre-procedure instructions explained to patient. 9:15:48 Pre-op teaching completed and patient verbalized understanding. 9:15:49 Family in waiting room. 9:15:51 Patient NPO since Midnight. 9:22:19 Oxygen 2 l/min NC was administered by Tammy Jennings RN; used for procedure; 9:22:26 Lidocaine 2% 20ml vial added to field was administered by Chava Escobar MD; for local anesthetic; 9:22:33 Heparin Flush Bag (1000units/500ml NS) 2 bags added to field was administered by Chava Escobar MD; used for procedure; 9:22:34 Vital chart was started 9:22:35 Full Disclosure recording started 9:22:43 0.9% NaCl 100 ml/hr I.V. was administered by Tammy Jennings RN; Per physician; 9:31:20 Is the patient allergic to Iodine/contrast media? No. 9:31:20 Is patient on blood thinner?Yes 9:31:22 ACC The patient was administered the following blood thiners within the last 24 hours: ACCPlavix 9:31:24 Patient diabetic? No. 9:31:26 Previous problem with sedation/anesthesia? No ? 9:31:28 Snore? Yes 9:31:30 Sleep apnea? No 9:31:33 Deviated septum? No 9:31:34 Opens mouth fully? Yes 9:31:35 Sticks out tongue? Yes 9:31:38 Airway obstruction? Yes asthma 9:31:40 Dentures? No ? 9:32:12 Modified Nehemiah's test Ulnar < 7 seconds 9:32:13 Patient pain scale 0/10 ?. 9:32:17 IV patent on arrival in left hand with 0.9% NaCl at [facility]. 9:33:20 Lab Result : BUN 16 mg/dl 9:33:20 Lab Result : Creatinine 0.8 mg/dl 9:33:20 Lab Result : Hematocrit 37.3 % 9:33:20 Lab Result : Hemoglobin 12.8 g/dl 9:33:22 Lab results completed and on chart. 9:33:23 Right Radial & Right Groin area was prepped with chlora-prep and draped in sterile fashion 9:33:24 Alarms reviewed by R. N. 9:33:24 Sharps counted by scrub and verified by R.N. 9:33:26 Use device set Radial Dx or PCI 9:33:27 ACIST Syringe (10934) opened to sterile field. 9:33:28 Medline Cath Pack ([id number]) opened to sterile field. 9:33:28 Bag Decanter (2002) opened to sterile field. 9:33:30 ACIST Hand Control (06338) opened to sterile field. 9:33:31 ACIST Manifold (81137) opened to sterile field. 9:33:31 Tegaderm 4 x 4 (1626W) opened to sterile field. 9:33:32 MBrace Wrist Support ([id number]) opened to sterile field. 9:33:33 DIAGNOSTIC WIRE .035 260cm J wire (279091) opened to sterile field. 9:33:35 SHEATH 6Fr Prelude Radial ([id number]) opened to sterile field. 9:33:42 Baseline sample Acquired. 9:33:45 Rhythm: sinus rhythm 9:33:49 Physician arrived 9:33:50 --------ALL STOP TIME OUT------ 9:33:52 Final Timeout: patient, procedure, and site verified with staff and physician. All members of the team are in agreement. 9:33:54 Right Radial & Right Groin site verified by team. 9:33:56 Physical assessment completed. ASA score P 2 - A patient with mild systemic disease as per Chava Escobar MD. 9:33:59 Sedation plan: IV Moderate Sedation Medication:Versed, Fentanyl 9:34:20 Versed 1 mg I.V. was administered by Tammy Jennings RN; for sedation; 9:34:25 Fentanyl 50 mcg I.V. was administered by Tammy Jennings RN; for sedation; 9:35:52 Zero performed for pressure channel P1 9:37:11 Versed 0.5 mg I.V. was administered by Tammy Jennings RN; for sedation; 9:37:17 Fentanyl 25 mcg I.V. was administered by Tammy Jennings RN; for sedation; 9:38:25 Procedure started. 9:38:29 Local anesthetic to right radial artery with Lidocaine 2% by Chava Escobar MD.INITIAL ACCESS ONLY 9:38:45 A 6 Fr Short sheath was inserted into the Right Radial artery 9:40:22 A DIAGNOSTIC [place] 110cm 5 Fr catheter ([id number]) was advanced over the wire and used for Procedure. 9:41:04 LV gram done using ANTONIO 9:41:07 Injector settings: Ml/sec: 5, Volume: 15, 9:41:09 Radial Cocktail (Verapomil 2mg/Nitro 400mcg/Heparin 1500units) 1 syringe added to field was administered by Chava Escobar MD; for vasodilation; 9:41:15 Versed 0.5 mg I.V. was administered by Tammy Jennings RN; for sedation; 9:41:19 Fentanyl 25 mcg I.V. was administered by Tammy Jennings RN; for sedation; 9:41:23 EF : 60 % 9:41:34 LCA angiography performed. 9:43:16 Catheter removed. 9:43:30 [place] IVUS Catheter (29822W) opened to sterile field. 9:43:30 CHOICE PT Extra Support 182cm wire ([id number]) opened to sterile field. 9:43:31 INFLATOR Merit BasixCompak (UE3707) opened to sterile field. 9:45:21 GUIDE 6FR AR 1.0 SH catheter ([id number]) opened to sterile field. 9:45:27 6 Fr ar1 sh guide catheter was inserted over the wire 9:45:32 choice pt wire advanced. 9:45:40 Wire advanced across lesion. 9:45:43 IVUS catheter advanced over wire. 9:47:32 IVUS pass to RCA lesion performed. 9:47:33 Heparin Bolus 4000 units I.V. was administered by Tammy Jennings RN; for anticoagulation; verified with dr escobar 9:47:33 IVUS catheter removed over wire. 9:49:24 Place stent Inflation Number: 1 A OSIEL RX 2.75 x 12 stent ([id number]) was prepped and advanced across the Mid RCA. The stent was deployed at 15 ROCAEL for 0:10 (min:sec). 9:49:30 Stent catheter was removed intact over wire. 9:49:30 Wire removed. 9:49:32 Guide catheter removed. 9:49:36 TR BAND Standard ([id number]) opened to sterile field. 9:49:44 Sheath removed intact; hemostasis achieved with Mechanical Compression to the Right Radial artery. 9:49:46 Procedure ended.(Physican Out) 9:52:13 Fluoroscopy time 03.10 minutes. 9:52:16 Fluoroscopy dose: 590 mGy 9:52:16 Flurop Dose total: 590 9:52:20 Contrast amount:Isovue 370 80ml. 9:52:21 Sharps counted by scrub and verified by R.N. 9:52:26 TR band inflated with 11cc of air. 9:52:28 Insertion/operative site no bleeding no hematoma. 9:52:31 Post Procedure Pulses reassessed and unchanged 9:52:35 Post-procedure physical assessment completed. ASA score P 2 - A patient with mild systemic disease as per Chava Escobar MD. 9:52:37 Post procedure rhythm: unchanged. 9:52:40 Estimated blood loss: 10 ml 9:52:41 Post procedure instruction explained to patient.Patient verbalizes understanding. 9:52:42 Patient needs reinforcement of post procedure teaching. 9:52:54 Procedure type changed to Cath procedure, Diagnostic procedure, LHC, LHC w/Coronaries, FFR/IVUS, Intra-Coronary IVUS Initial, Sedation Charges, Moderate Sedation up to 15 minutes, PCI procedure, Coronary Stent, Coronary Stent Initial 9:54:50 Procedure and supply charges have been captured, reviewed, submitted and are correct. 9:54:53 Procedure Complication : No complications 9:54:54 Vital chart was stopped 9:54:55 See physician's report for complete and final results. 9:54:56 Report given to Pre/Post Procedure Room. 9:54:58 Patient transfered to Pre/Post Procedure Room with Stretcher. 9:55:01 Procedure ended. 9:55:01 Full Disclosure recording stopped 9:55:05 End room use (Document Last) Intervention Summary Intervention Notes Time ActionType Lesion and Equipment Used Action# Pressure Duration Attributes 9:49:24 Place stent Mid RCA OSIEL RX 2.75 x 1 15 00:10 12 stent ([id number]) Device Usage Item Name Manufacture Quantity Catalog Number Hospital Part Current Minimal Lot# / Charge Number Stock Stock Serial# Code ACIST Syringe Acist 1 96854 916405 719451 272439 20 (94435) [employer] Medline Cath Cardinal 1 [id number] 491648 05184 532391 5 Pack Health ([id number]) Bag Decanter Microtek 1 2001S 425194 63164 045222 5 (2002S) Medical Inc. ACIST Hand Acist 1 79315 363367 859832 118176 5 Control (18562) [employer] Inc ACIST Manifold Acist 1 55829 726085 672745 744942 5 (88665) [employer] Inc Tegaderm 4 x 4 3M 1 1626W 538613 458354 319355 5 (1626W) MBrace Wrist Advanced 1 140-0250-00 222880 98246 065520 5 Support Vascular ([id number]) Dynamics DIAGNOSTIC WIRE St [place] 1 351864 166191 399732 177340 30 .035 260cm J wire (911103) SHEATH 6Fr Merit 1 [id number] 222191 125094 151781 5 Prelude Radial Medical ([id number]) DIAGNOSTIC Terumo 1 40-9848 104625 912945 717072 5 [place] 110cm 5 Fr catheter (086058) [place] 1 86981Q 422139 198840 698517 8 [place] IVUS Catheter (40979E) CHOICE PT Extra [place] 1 [id number] 163420 661800 390509 5 Support 182cm Scientific wire ([id number]) INFLATOR Merit Merit 1 AL5600 401380 496008 610299 15 [facility] Medical (ZZ6981) GUIDE 6FR AR Medtronic 1 [id number] 674782 71404 328429 1 1.0 SH catheter ([id number]) OSIEL RX 2.75 x Medtronic 1 [id number] 453824 7970189 158455 5 [id number] 12 stent ([id number]) TR BAND Terumo 1 [id number] 304458 901980 306297 40 Standard ([id number]) Signature Audit [place] Stage Time Signature Unsigned Intra-Procedure 02/18/2018 Dave Monzon 9:55:59 AM RT(R) Signatures Monitor : Dave Monzon RT Signature : Date : Time : [address] [address]
[2018-02-18] MEDS ORDERED: ESTRACE1 MG PO (07:51)
[2018-02-18] MEDS ORDERED: FOLIC ACID1 MG PO (07:53)
[2018-02-18 08:00] VITALS: BP 144/79; Ht 165.1 cm; Wt 75.0 kg
[2018-02-18] MEDS ORDERED: PLAVIX75 MG PO (08:03)
[2018-02-18 08:53] LABS: CALC OSMOLALITY 286 mosm/kg (275-300); CALCIUM 8.7 mg/dL (8.5-10.1); CARBON DIOXIDE 25.7 mmol/L (21.0-32.0); CHLORIDE - SERUM 107 mmol/L (98-107); CREATININE - SERUM 0.8 mg/dL (0.6-1.3); GLUCOSE 116 mg/dL (74-106); POTASSIUM - SERUM 4.1 mmol/L (3.5-5.1); SODIUM 143 mmol/L (136-145); UREA NITROGEN 16 mg/dL (7-18); eGFR NON AFRICAN AMERICAN 75 mL/min (90-120)
[2018-02-18 08:59] LABS: BASOPHILS 0.6 % (0-2); EOSINOPHILS 4.6 % (0-7); HEMATOCRIT 37.3 % (36.0-48.0); HEMOGLOBIN 12.8 g/dL (12-16); IMMATURE GRANULOCYTES 0.2 % (0-5); LYMPHOCYTES 18.8 % (15-50); MCH 31.3 pg (26.0-34.0); MCHC 34.3 g/dL (31.0-37.0); MCV 91.2 fL (80.0-100.0); MEAN PLATELET VOLUME 9.3 fL (7.4-10.4); MONOCYTES 7.5 % (2-11); NEUTROPHILS 68.3 % (40-80); PLATELET COUNT 153 10x3/uL (130-400); RBC 4.09 10x6/uL (4.00-5.40); RDW 13.8 % (11.5-14.5); WBC 5.2 10x3/uL (4.8-10.8)
== END 2018-02-18 14:10 | disposition home or self-care (01) ==
LOC: D.CATH 07:36
PROVIDERS: Internal Medicine Interventional Cardiology
DX: I25.119 Atherosclerotic heart disease of native coronary artery with unspecified angina pectoris (principal); Z95.5 Presence of coronary angioplasty implant and graft; Z01.812 Encounter for preprocedural laboratory examination
CPT/HCPCS: 93458; 92978; C9600